=== PATIENT | male | born 1955 ===

== ENCOUNTER 2024-09-20 16:46 | Inpatient (IN) | payer MEDICARE, OTHER ==
[2024-09-20] MEDS ORDERED: Sodium Chloride 0.9% 10 ML Syringe FLUSH PRN (17:11)
[2024-09-20 17:25] LABS: BASOPHILS PERCENT AUTO 0.3 % (0.0-1.0); EOSINOPHILS PERCENT AUTO 1.9 % (1.0-3.0); HEMATOCRIT 27.7 % (40.0-54.0); HEMOGLOBIN 8.9 g/dL (14.0-18.0); LYMPHOCYTES PERCENT AUTO 10.4 % (20.5-50.1); MEAN CORPUSCULAR HEMOGLOBIN 29.9 pg (27.0-34.0); MEAN CORPUSCULAR HGB CONC 32.1 g/dL (33.0-35.0); MONOCYTES PERCENT AUTO 11.1 % (2-8); NEUTROPHILS PERCENT AUTO 76.3 % (42.2-75.2); PLATELET COUNT,PLT 251 10^3/uL (150-450); RED BLOOD CELL COUNT 2.98 10^6/uL (4.6-6.2)
[2024-09-20 17:52] LABS: ALBUMIN 3.1 g/dL (3.4-5.0); ANION GAP 15.4 mEq/L (7-13); BILIRUBIN TOTAL 0.5 mg/dL (0.2-1.0); BUN/CREATININE RATIO 11.9 (No establ ref range); C-REACTIVE PROTEIN 2.89 ng/dL (<=0.50); CALCIUM 7.3 mg/dL (8.5-10.1); CREATININE 2.68 mg/dL (0.70-1.30); EST CRCL DRUG DOSING (CG) 31.53 mL/min; POTASSIUM,K 3.4 mmol/L (3.5-5.1)
[2024-09-20 17:55] LABS: A/G RATIO 0.79
[2024-09-20] MEDS: Ondansetron 4 MG/2 ML SDV IVPUSH ONE (17:56)
[2024-09-20 18:00] LABS: MAGNESIUM 0.4 mg/dL (1.8-2.4)
[2024-09-20] MEDS: Magnesium Sulfate 2 GM/50 mL 2 GM in Premix Bag 1 BAG IV ONE ×3 (18:01→23:45)
[2024-09-20 18:07] LABS: INR 1.1 (0.9-1.2); PROTHROMBIN TIME 11.2 SEC (9.0-12.0); PTT,PARTIAL THROMBOPLSTIN TIME 26.1 SEC (22.0-34.0)
[2024-09-20] MEDS: Potassium Chloride 10 MEQ Tab.ER PO ONE (18:13)
[2024-09-20] MEDS: Thiamine 200 MG/2 ML MDV IVPUSH ONE (18:48)
[2024-09-20] MEDS: MVI, Adult with Vitamin K 10 ML, Folic Acid 1 MG, Thiamine 100 MG in Lactated Ringers 1... IV ONE (18:48)
[2024-09-20 19:02] LABS: APPEARANCE,URINE CLEAR (CLEAR); BILIRUBIN,URINE NEGATIVE (NEGATIVE); COLOR,URINE YELLOW (YELLOW); GLUCOSE,URINE NEGATIVE (NEGATIVE); KETONES,URINE NEGATIVE (NEGATIVE); LEUKOCYTE ESTERASE,URINE NEGATIVE (NEGATIVE); NITRITE,URINE NEGATIVE (NEGATIVE); OCCULT BLOOD,URINE TRACE-INTACT (NEGATIVE); PH,URINE 5.5 (5.0-9.0); PROTEIN,URINE 30 (NEGATIVE); UROBILINOGEN,URINE 0.2 mg/dL (0.2-1.0)
[2024-09-20 19:11] LABS: EPITHELIAL CELLS,URINE RARE /HPF (NOT SEEN); RBC,URINE 0-5 /HPF (0-5); WBC,URINE 0-5 /HPF (0-5/HPF)
[2024-09-20 19:12] LABS: AMORPHOUS SEDIMENT,URINE FEW /HPF (NOT SEEN); BACTERIA,URINE FEW /HPF (0-FEW/HPF); MUCUS,URINE FEW /LPF (NOT SEEN)
[2024-09-20] MEDS: Sodium Chloride 0.9% 1,000 ML IV ONE (19:23)
[2024-09-20] MEDS ORDERED: Ondansetron 4 MG/2 ML SDV IVPUSH PRN (20:56)
[2024-09-20] MEDS ORDERED: 50% Dextrose in Water 50 ML Syringe IVPUSH PRN (21:13)
[2024-09-20] MEDS ORDERED: Glucagon,Human Recombinant 1 MG Vial IM PRN (21:13)
[2024-09-20 21:31] LABS: HEMOGLOBIN A1C 6.5 % (<5.7)
[2024-09-20 21:45] LABS: PERCENT FE SATURATION 8.9 % (20.0-50.0)
[2024-09-20 21:59] LABS: FOLIC ACID 15.6 ng/mL (8.6-58.9); T4 FREE 1.13 ng/dL (0.76-1.46); TSH ULTRASENSITIVE 2.06 uIU/mL (0.36-3.74)
[2024-09-20 22:24] LABS: POTASSIUM,K 3.7 mmol/L (3.5-5.1)
[2024-09-20] MEDS: Furosemide 40 MG/4 ML VIAL IVPUSH ONE (22:25)
[2024-09-20] MEDS: Enoxaparin 100 MG/1 ML Syringe SUBCUT SCH (22:55)
[2024-09-21 06:18] LABS: BASOPHILS PERCENT AUTO 0.4 % (0.0-1.0); EOSINOPHILS PERCENT AUTO 2.1 % (1.0-3.0); HEMATOCRIT 25.4 % (40.0-54.0); HEMOGLOBIN 8.2 g/dL (14.0-18.0); LYMPHOCYTES PERCENT AUTO 12.1 % (20.5-50.1); MEAN CORPUSCULAR HEMOGLOBIN 30.1 pg (27.0-34.0); MEAN CORPUSCULAR HGB CONC 32.3 g/dL (33.0-35.0); MEAN CORPUSCULAR VOLUME 93.4 fL (80-100); NEUTROPHILS PERCENT AUTO 72.4 % (42.2-75.2); PLATELET COUNT,PLT 215 10^3/uL (150-450); RED BLOOD CELL COUNT 2.72 10^6/uL (4.6-6.2); WHITE BLOOD CELL COUNT,WBC 5.6 10^3/uL (5.0-10.0)
[2024-09-21 06:48] LABS: ALBUMIN 2.7 g/dL (3.4-5.0); ANION GAP 12.3 mEq/L (7-13); BILIRUBIN TOTAL 0.4 mg/dL (0.2-1.0); BUN/CREATININE RATIO 10.2 (No establ ref range); C-REACTIVE PROTEIN 4.47 ng/dL (<=0.50); CALCIUM 7.1 mg/dL (8.5-10.1); CREATININE 2.65 mg/dL (0.70-1.30); EST CRCL DRUG DOSING (CG) 31.89 mL/min; MAGNESIUM 1.4 mg/dL (1.8-2.4); POTASSIUM,K 3.3 mmol/L (3.5-5.1); PROTEIN TOTAL,TP 6.3 g/dL (6.4-8.2)
[2024-09-21 06:50] LABS: A/G RATIO 0.75
[2024-09-21] MEDS: Magnesium Sulfate 2 GM/50 mL 2 GM in Premix Bag 1 BAG IV ONE ×3 (08:21→16:04)
[2024-09-21] MEDS: Tamsulosin 0.4 MG Cap.ER PO SCH (08:41)
[2024-09-21] MEDS: Potassium Chloride 10 MEQ Tab.ER PO SCH (08:41)
[2024-09-21] MEDS ORDERED: Enoxaparin 40 MG/0.4 ML Syringe SUBCUT SCH (09:00)
[2024-09-21] MEDS: Furosemide 100 MG/10 ML SDV IVPUSH ONE ×2 (09:06→16:04)
[2024-09-21] MEDS: Insulin Lispro 100 Units/ML 3 ML Vial SUBCUT SCH (09:53)
[2024-09-21 10:58] LABS: CORONAVIRUS COVID-19 NAA NEGATIVE (NEGATIVE); INFLUENZA A NAA NEGATIVE (NEGATIVE); INFLUENZA B NAA NEGATIVE (NEGATIVE)
[2024-09-21 14:39] LABS: MAGNESIUM 1.6 mg/dL (1.8-2.4); POTASSIUM,K 3.6 mmol/L (3.5-5.1)
[2024-09-21] MEDS ORDERED: Calcium Carbonate 500 MG Tab.Chew PO PRN (15:26)
[2024-09-21] MEDS: Potassium Chloride 10 MEQ Tab.ER PO ONE (16:04)
[2024-09-21] MEDS: Insulin Glarg,Human.Rec.Analog 100 Unit/ML 10 ML Vial SUBCUT SCH (21:42)
[2024-09-22] MEDS: Melatonin 3 MG Tab PO PRN (00:59)
[2024-09-22 06:15] LABS: BASOPHILS PERCENT AUTO 0.5 % (0.0-1.0); EOSINOPHILS PERCENT AUTO 3.3 % (1.0-3.0); HEMATOCRIT 26.2 % (40.0-54.0); HEMOGLOBIN 8.5 g/dL (14.0-18.0); LYMPHOCYTES PERCENT AUTO 15.7 % (20.5-50.1); MEAN CORPUSCULAR HEMOGLOBIN 29.8 pg (27.0-34.0); MEAN CORPUSCULAR HGB CONC 32.4 g/dL (33.0-35.0); MEAN CORPUSCULAR VOLUME 91.9 fL (80-100); MONOCYTES PERCENT AUTO 13.6 % (2-8); NEUTROPHILS PERCENT AUTO 66.9 % (42.2-75.2); PLATELET COUNT,PLT 251 10^3/uL (150-450); RED BLOOD CELL COUNT 2.85 10^6/uL (4.6-6.2); WHITE BLOOD CELL COUNT,WBC 6.1 10^3/uL (5.0-10.0)
[2024-09-22 06:44] LABS: A/G RATIO 0.67; ALBUMIN 2.6 g/dL (3.4-5.0); ANION GAP 12.5 mEq/L (7-13); BILIRUBIN TOTAL 0.4 mg/dL (0.2-1.0); BUN/CREATININE RATIO 11.8 (No establ ref range); C-REACTIVE PROTEIN 5.83 ng/dL (<=0.50); CALCIUM 7.4 mg/dL (8.5-10.1); CREATININE 2.79 mg/dL (0.70-1.30); EST CRCL DRUG DOSING (CG) 29.2 mL/min; MAGNESIUM 1.6 mg/dL (1.8-2.4); POTASSIUM,K 3.5 mmol/L (3.5-5.1); PROTEIN TOTAL,TP 6.5 g/dL (6.4-8.2)
[2024-09-22] MEDS: Acetaminophen 325 MG Tab PO PRN (07:51)
[2024-09-22] MEDS: Potassium Chloride 10 MEQ Tab.ER PO SCH (07:51)
[2024-09-22] MEDS: Magnesium Sulfate 2 GM/50 mL 2 GM in Premix Bag 1 BAG IV ONE (07:54)
[2024-09-22] MEDS: Insulin Lispro 100 Units/ML 3 ML Vial SUBCUT SCH (08:09)
[2024-09-22] MEDS ORDERED: Take Home: Tamsulosin HCl 0.4 MG, 6 Cap Pack PO SCH (09:00)
[2024-09-22] MEDS: Bumetanide 1 MG/4 ML MDV IVPUSH ONE (11:20)
[2024-09-22 12:30] LABS: CREATININE 3.02 mg/dL (0.70-1.30); EST CRCL DRUG DOSING (CG) 27.31 mL/min; POTASSIUM,K 3.9 mmol/L (3.5-5.1)
[2024-09-22] MEDS: Magnesium Oxide 400 MG Tab PO SCH (13:05)
[2024-09-22] MEDS: Potassium Chloride 10 MEQ Tab.ER PO ONE ×2 (13:06→13:08)
[2024-09-22] MEDS: Thiamine 100 MG Tab PO SCH (21:36)
[2024-09-22] MEDS: Insulin Glarg,Human.Rec.Analog 100 Unit/ML 10 ML Vial SUBCUT SCH (21:39)
[2024-09-23 06:20] LABS: BASOPHILS PERCENT AUTO 0.4 % (0.0-1.0); EOSINOPHILS PERCENT AUTO 3.8 % (1.0-3.0); HEMATOCRIT 28.5 % (40.0-54.0); HEMOGLOBIN 9.2 g/dL (14.0-18.0); LYMPHOCYTES PERCENT AUTO 14.2 % (20.5-50.1); MEAN CORPUSCULAR HEMOGLOBIN 29.8 pg (27.0-34.0); MEAN CORPUSCULAR HGB CONC 32.3 g/dL (33.0-35.0); MEAN CORPUSCULAR VOLUME 92.2 fL (80-100); MONOCYTES PERCENT AUTO 14.1 % (2-8); NEUTROPHILS PERCENT AUTO 67.5 % (42.2-75.2); PLATELET COUNT,PLT 269 10^3/uL (150-450); RED BLOOD CELL COUNT 3.09 10^6/uL (4.6-6.2); WHITE BLOOD CELL COUNT,WBC 7.3 10^3/uL (5.0-10.0)
[2024-09-23 06:46] LABS: ALBUMIN 2.8 g/dL (3.4-5.0); ANION GAP 11.4 mEq/L (7-13); BILIRUBIN TOTAL 0.5 mg/dL (0.2-1.0); BUN/CREATININE RATIO 14.4 (No establ ref range); C-REACTIVE PROTEIN 6.18 ng/dL (<=0.50); CALCIUM 7.9 mg/dL (8.5-10.1); CREATININE 2.77 mg/dL (0.70-1.30); EST CRCL DRUG DOSING (CG) 29.23 mL/min; MAGNESIUM 1.7 mg/dL (1.8-2.4); POTASSIUM,K 4.4 mmol/L (3.5-5.1); PROTEIN TOTAL,TP 6.7 g/dL (6.4-8.2)
[2024-09-23 06:47] LABS: A/G RATIO 0.72
[2024-09-23] MEDS: Magnesium Sulfate 2 GM/50 mL 2 GM in Premix Bag 1 BAG IV ONE (09:40)
[2024-09-23] MEDS: Enoxaparin 100 MG/1 ML Syringe SUBCUT SCH (09:41)
[2024-09-23 10:06] LABS: CHOLESTEROL HDL 64 mg/dL (40-59); CHOLESTEROL LDL CALCULATED 62 mg/dL (0-100); CHOLESTEROL TOTAL 137 mg/dL (0-199); TRIGLYCERIDES 57 mg/dL (0-149)
[2024-09-23] MEDS: Ibuprofen 400 MG Tab PO ONE (11:11)
[2024-09-23] MEDS: Diphtheria,Pertussis(Acell),Tetanus Vaccine 0.5 ML Syringe IM ONE (11:13)
[2024-09-23] MEDS: Sodium Chloride 0.9% 1,000 ML IV SCH (13:30)
[2024-09-24 06:20] LABS: BASOPHILS PERCENT AUTO 0.6 % (0.0-1.0); EOSINOPHILS PERCENT AUTO 5.6 % (1.0-3.0); HEMATOCRIT 31.3 % (40.0-54.0); LYMPHOCYTES PERCENT AUTO 18.1 % (20.5-50.1); MEAN CORPUSCULAR HEMOGLOBIN 29.6 pg (27.0-34.0); MEAN CORPUSCULAR HGB CONC 31.9 g/dL (33.0-35.0); MEAN CORPUSCULAR VOLUME 92.6 fL (80-100); MONOCYTES PERCENT AUTO 12.7 % (2-8); PLATELET COUNT,PLT 298 10^3/uL (150-450); RED BLOOD CELL COUNT 3.38 10^6/uL (4.6-6.2); WHITE BLOOD CELL COUNT,WBC 6.2 10^3/uL (5.0-10.0)
[2024-09-24 07:09] LABS: ANION GAP 10.7 mEq/L (7-13); BILIRUBIN TOTAL 0.4 mg/dL (0.2-1.0); BUN/CREATININE RATIO 14.1 (No establ ref range); C-REACTIVE PROTEIN 5.03 ng/dL (<=0.50); CALCIUM 8.5 mg/dL (8.5-10.1); CREATININE 2.49 mg/dL (0.70-1.30); EST CRCL DRUG DOSING (CG) 32.72 mL/min; MAGNESIUM 1.9 mg/dL (1.8-2.4); POTASSIUM,K 4.7 mmol/L (3.5-5.1); PROTEIN TOTAL,TP 7.4 g/dL (6.4-8.2)
[2024-09-24 07:11] LABS: A/G RATIO 0.68
[2024-09-24] MEDS: Bisacodyl 5 MG Tab PO SCH (10:44)
[2024-09-24] MEDS: Docusate Sodium 100 MG Cap PO SCH (10:44)
[2024-09-24] MEDS: Polyethylene Glycol 3350 Powder 17 GM Packet PO SCH (10:44)
[2024-09-24] MEDS: Losartan 50 MG Tab PO ONE (12:17)
[2024-09-24] MEDS: Lactulose Soln 10 GM/15 ML 30 ML UD Cup PO ONE (14:27)
[2024-09-24] MEDS: amLODIPine 5 MG Tab PO ONE (15:00)
== END 2024-09-24 15:18 | disposition home or self-care (01) | DRG 641 ==
LOC: DL.ED 16:46 → DL.MS 20:06 → INTOOBSV 20:06 → OBSVTOIN 09-21 14:22
PROVIDERS: ADMIT Student in an Organized Health Care Education/Training Program; ATTEND Student in an Organized Health Care Education/Training Program
DX: E83.42 Hypomagnesemia (principal); N17.9 Acute kidney failure, unspecified; N18.4 Chronic kidney disease, stage 4 (severe); K52.9 Noninfective gastroenteritis and colitis, unspecified; K21.9 Gastro-esophageal reflux disease without esophagitis; E78.00 Pure hypercholesterolemia, unspecified; E87.6 Hypokalemia; G47.33 Obstructive sleep apnea (adult) (pediatric); I12.9 Hypertensive chronic kidney disease with stage 1 through stage 4 chronic kidney disease, or unspecified chronic kidney disease; E11.22 Type 2 diabetes mellitus with diabetic chronic kidney disease; M43.6 Torticollis; R51.9 Headache, unspecified; K59.00 Constipation, unspecified; D63.8 Anemia in other chronic diseases classified elsewhere; M79.10 Myalgia, unspecified site; R42 Dizziness and giddiness; N40.1 Benign prostatic hyperplasia with lower urinary tract symptoms; R35.0 Frequency of micturition; Z85.038 Personal history of other malignant neoplasm of large intestine; Z90.49 Acquired absence of other specified parts of digestive tract
CPT/HCPCS: 0240U; 36415; 70450; 71045; 80053; 80061; 81001; 82272; 82550; 82565; 82607; 82728; 82746; 82947; 83036; 83540; 83550; 83605; 83615; 83735; 83880; 84100; 84132; 84439; 84443; 84484; 85025; 85379; 85610; 85730; 86140; 90471; 90715; 93005; 93010; 93970; 97161-GP; 97165-GO; 97530-GP; 99223; 99232; 99233; 99284; A9270-GY; J1650; J1815-GY; J1938; J2405; J3411; J3475; J3490; J7030; J7120